=== PATIENT | male | born 2000 | race Caucasian/White ===

== ENCOUNTER 2019-09-08 20:54 | Emergency (ER) | payer OTHER ==
[2019-09-08] MEDS ORDERED: Clindamycin HCl 150 MG Cap ONE (21:00)
[2019-09-08] MEDS: cefTRIAXone 1 GM Vial IM ONE (22:05)
--- NOTE | 2019-09-08 22:31 | EDM.PDOC ---
ED HPI GENERAL MEDICAL PROBLEM - General Chief Complaint: General Stated Complaint: Cyst at Lower Back Time Seen by Provider: 09/08/19 21:10 Source of Information: Reports: Patient, Family History Limitations: Reports: No Limitations - History of Present Illness INITIAL COMMENTS - FREE TEXT/NARRATIVE: This is a 19yo M college student here for a painful rectal lesion. He notes prior area did burst and ooze for days in the past. Recently the area is increasingly tender. Onset: Gradual Duration: Day(s): Quality: Reports: Ache, Pressure Severity: Moderate Improves with: Reports: None Worsens with: Reports: Movement - Related Data Allergies Allergy/AdvReac Type Severity Reaction Status Date / Time No Known Allergies Allergy Verified 09/08/19 21:16 Home Meds: Home Meds levETIRAcetam [Keppra Xr] 3,750 mg PO BEDTIME 09/08/19 [History] Past Medical History Musculoskeletal History: Reports: Fracture Other Musculoskeletal History: Fracture, R Elbow and back Neurological History: Reports: Seizure, Other (See Below) Other Neuro History: Epilepsy in March 1017 Social & Family History - Tobacco Use Smoking Status *Q: Never Smoker Second Hand Smoke Exposure: No - Caffeine Use Caffeine Use: Reports: None - Recreational Drug Use Recreational Drug Use: No ED ROS GENERAL - Review of Systems Review Of Systems: Comprehensive ROS is negative, except as noted in HPI. ED EXAM, GENERAL - Physical Exam Exam: See Below Exam Limited By: No Limitations General Appearance: Alert, WD/WN, No Apparent Distress Eye Exam: Bilateral Eye: EOMI Ears: Normal External Exam Nose: Normal Inspection Throat/Mouth: Normal Inspection Head: Atraumatic, Normocephalic Neck: Normal Inspection Respiratory/Chest: No Respiratory Distress, Lungs Clear, Normal Breath Sounds Cardiovascular: Normal Peripheral Pulses, Regular Rate, Rhythm Rectal (Males) Exam: Normal Exam, Tenderness, Other (superior area of induration and drainage from rectum) ED GENERAL MEDICAL PROCEDURES - Additional/Other Procedure(s) Other (Free Text) Procedure(s): Abscess drained and culture on buttocks crease at most superior crease area Course - Vital Signs Last Recorded V/S: Last Vital Signs Temp 36.8 C 09/08/19 21:05 Pulse 75 09/08/19 21:05 Resp 16 09/08/19 21:05 BP 120/63 09/08/19 21:05 Pulse Ox 99 09/08/19 21:05 - Orders/Labs/Meds Meds: Medications Discontinued Medications Generic Name Dose Route Start Last Admin Trade Name Josie PRN Reason Stop Dose Admin Ceftriaxone Sodium 1 gm 09/08/19 21:46 09/08/19 22:05 Rocephin IM 09/08/19 21:47 1 gm ONETIME ONE Administration Departure - Departure Time of Disposition: 22:20 Disposition: Home, Self-Care 01 Condition: Good Clinical Impression: Abscess - Discharge Information Instructions: Clindamycin capsules, Perirectal Abscess Referrals: PCP,None [Primary Care Provider] - Forms: ED Department Discharge Additional Instructions: - Take Clindamycin 450 mg (3 caps of 150 mg) every 6 hours to complete 10 days. - May take Ibuprofen 400 ( 2 tabs of 200 mg) every 4-6 hours when needed for pain. - Follow-up with provider in a week especially if the abscess has not healed. - Call the hospital in this # [phone], to follow-up result of culture. Sepsis Event Note - Evaluation Sepsis Screening Result: No Definite Risk - Focused Exam Vital Signs: Vital Signs Temp Pulse Resp BP Pulse Ox 09/08/19 21:05 36.8 C 75 16 120/63 99 Date Exam was Performed: 09/08/19 Time Exam was Performed: 22:27 - Problem List & Annotations (1) Abscess SNOMED Code(s): 314296841 Code(s): L02.91 - CUTANEOUS ABSCESS, UNSPECIFIED Status: Acute Priority: High Current Visit: Yes - Problem List Review Problem List Initiated/Reviewed/Updated: Yes - Assessment/Plan Assessment:: Counseled on abscess and management. Discussed close monitoring until resolution. Discussed Rocephin and Clindamycin side effects. F/u if symptoms persist or worsen. Rtc as needed and as directed.
== END 2019-09-08 22:21 | disposition home or self-care (01) ==
LOC: LB.ED 20:54
DX: K61.1 Rectal abscess (principal); G40.909 Epilepsy, unspecified, not intractable, without status epilepticus; Z79.899 Other long term (current) drug therapy
CPT/HCPCS: 87070; 87205; 96372; 99283; A9270; J0696; 87077